=== PATIENT | male | born 1970 | race Hispanic/Latino ===

== ENCOUNTER 2023-03-17 12:24 | Inpatient (IN) | payer SELFPAY ==
[2023-03-17] VITALS (17 sets, daily range): BP systolic 89–109; BP diastolic 44–69; PULSE 68–80; RESP 13–25; TEMP 36–36.6; O2SAT 94–100; BMI 30.5
--- NOTE | ~2023-03-17 | CT_ITS ---
EXAMINATION: CT chest abdomen pelvis wo con DATE: 03/19/2023 01:08 INDICATION: Abdominal distention. TECHNIQUE: Computed tomography (CT) of the chest, abdomen, and pelvis was performed without intraveno us contrast. Automated exposure control and iterative reconstruction technique were employed. The dos e-length product was 842.40 mGy-cm. COMPARISON: None FINDINGS: CHEST CT: There are small pleural effusions. There is mild atelectasis bilaterally. Calcified pulmonary nodules and calcified mediastinal lymph nodes are consistent with old granulomatous disease. Cardiomegaly is noted. There is a moderate-sized pericardial effusion. There are coronary artery calcifications. The re is mild thoracic spondylosis. ABDOMEN/PELVIS CT: The liver is normal. There are gallstones in the gallbladder, which is normal in size. Gallbladder wa ll thickening is likely secondary to interstitial edema. The spleen, pancreas, and adrenal glands are normal. There is mild atrophy of the kidneys. There are widespread arterial calcifications. The pros turner is mildly enlarged. There are no dilated loops of bowel. The appendix is normal. There is a larg e volume of ascites. There is edema of the intra-abdominal fat and body wall. There is an umbilical h ernia containing ascites. There are no pathologically enlarged lymph nodes. There is mild lumbar spon dylosis. IMPRESSION: 1. Moderate-sized pericardial effusion. 2. Small pleural effusions. 3. Large volume of ascites. 4. Cholelithiasis. Gallbladder wall thickening is likely secondary to interstitial edema. Reviewed, dictated and finalized at location E. AND NUTRITION SUPERVISOR IMPRESSION: 1. Moderate-sized pericardial effusion. 2. Small pleural effusions. 3. Large volume of ascites. 4. Cholelithiasis. Gallbladder wall thickening is likely secondary to interstit ial edema.
--- NOTE | ~2023-03-17 | US_ITS ---
EXAMINATION: US abdomen limited DATE: 03/19/2023 INDICATION: Cholelithiasis TECHNIQUE: Multiple grayscale and Doppler ultrasound images of the abdomen were obtained. COMPARISON: CT dated 03/19/2023 FINDINGS: The visualized proximal aorta and inferior vena cava are normal. The region of the pancreas and more distal aorta and inferior vena cava are obscured by large amount of shadowing bowel gas. Liver has no rmal echogenicity and contour, with a smooth surface. No liver lesion identified. No intrahepatic yeison iary duct dilation suspected. Portal venous flow was seen in the hepatopetal, normal direction but wi th increased portal venous pulsatility. This along with dilation of the draining hepatic veins would be consistent with tricuspid regurgitation, right heart failure or other cause of elevated right hear t pressure. Sludge and couple small shadowing gallstones in the dependent gallbladder. There is mild diffuse gallbladder wall thickening but without emerson dilation to suggest acute cholecystitis. Sonogr aphic Martin sign was also reported as negative by the shredded filler cigar maker machine articular against acute cholecysti tis and suggesting the wall thickening is also likely related to cardiac disease. Common bile duct me asures 3 mm diameter which is normal. Moderate amount of ascites seen in the right upper quadrant. IMPRESSION: 1. Increased portal venous pulsatility and dilation of the draining hepatic veins likely cardiogenic in origin which could be related to congestive heart failure, tricuspid regurgitation or other cause of right heart failure. 2. Cholelithiasis with wall thickening of the nondilated gallbladder and with negative sonographic Mu rphy's sign which strongly favors cardiogenic interstitial edema over acute cholecystitis. 3. Moderate amount of ascites in the right upper quadrant also likely cardiogenic in origin. Reviewed, dictated and finalized at location A. LE HOUSE CLEANERS SUPERVISOR IMPRESSION: 1. Increased portal venous pulsatility and dilation of the draining hepatic vei ns likely cardiogenic in origin which could be related to congestive heart fail ure, tricuspid regurgitation or other cause of right heart failure. 2. Cholelithiasis with wall thickening of the nondilated gallbladder and with n egative sonographic Martin's sign which strongly favors cardiogenic interstitia l edema over acute cholecystitis. 3. Moderate amount of ascites in the right upper quadrant also likely cardiogen ic in origin.
--- NOTE | ~2023-03-17 | US_ITS ---
EXAMINATION: US paracentesis abd w/image DATE: 03/20/2023 10:05 INDICATION: Ascites. TECHNIQUE: The procedure and its risks and benefits were discussed with the patient. Potential risks discussed included bleeding and infection. The skin was prepped and draped in sterile fashion. 1% lid ocaine was used for local anesthesia. Under ultrasound guidance, a 5 Fr catheter with trochar was adv anced into the ascites in the left lower quadrant. Fluid was aspirated into vacuum bottles. The kyung ter was removed, and a dressing was applied. There were no immediate complications. FINDINGS: Ultrasound images demonstrate ascites and the catheter within the fluid. IMPRESSION: 1. Successful ultrasound-guided paracentesis yielding 2700 mL of clear yellow fluid. Reviewed, dictated and finalized at location A. RANCE MANAGER
--- NOTE | ~2023-03-17 | XR_ITS ---
EXAMINATION: XR chest 1V portable DATE: 03/19/2023 01:15 INDICATION: Shortness of breath. TECHNIQUE: A single frontal view of the chest was obtained. COMPARISON: Chest 2 views 03/17/2023, chest CT 03/19/2023 FINDINGS: There are small pleural effusions. There is mild atelectasis in the lower lung zones. No pn eumothorax. There is enlargement of the cardiac silhouette. IMPRESSION: 1. Small pleural effusions. 2. Mild atelectasis in the lower lung zones. 3. Enlargement of the cardiac silhouette, consistent with a combination of cardiomegaly and pericardi al effusion. Reviewed, dictated and finalized at location E. ER CUTTER IMPRESSION: 1. Small pleural effusions. 2. Mild atelectasis in the lower lung zones. 3. Enlargement of the cardiac silhouette, consistent with a combination of card iomegaly and pericardial effusion.
--- NOTE | ~2023-03-17 | XR_ITS ---
EXAMINATION: XR chest 2V DATE: 03/17/2023 12:45 INDICATION: Chest pain. Shortness of breath. TECHNIQUE: Frontal and lateral views of the chest were obtained. COMPARISON: None. FINDINGS: There are small pleural effusions. There are airspace opacities in the mid and lower lung z ones with a basilar predominance. No pneumothorax. Cardiomegaly is noted. IMPRESSION: 1. Small pleural effusions. 2. Airspace opacities in the mid and lower lung zones with a basilar predominance, consistent with at electasis versus pneumonia. 3. Cardiomegaly. Reviewed, dictated and finalized at location A. NG ROOM ATTENDANT IMPRESSION: 1. Small pleural effusions. 2. Airspace opacities in the mid and lower lung zones with a basilar predominan ce, consistent with atelectasis versus pneumonia. 3. Cardiomegaly.
--- NOTE | 2023-03-17 12:29 | ECG_ITS ---
Measurements Intervals [place] Rate: 67 P: 22 [place]: 165 QRS: -13 QRSD: 139 T: 53 QT: 437 QTc: 464 Interpretive Statements SINUS RHYTHM RIGHT BUNDLE BRANCH BLOCK BASELINE ARTIFACT- I, II, III, AVR, AVL, AVF, V1, V4-V5 ABNORMAL ECG NO PREVIOUS ECG AVAILABLE FOR COMPARISON Electronically Signed On 03-18-2023 8:42:23 PHOTOGRAPH ENLARGER by Wilfred Sanchez D.O.
--- NOTE | 2023-03-17 12:36 | ED.CHESTPAIN ---
HPI - Chest Pain General Chief Complaint: Chest Pain Stated Complaint: Chest Pain Time Seen by Provider: 03/17/23 12:29 Source: patient and family () Limitations: language barrier ([place]se as 2nd language although patient has appropriate fluency in [place]se) History of Present Illness HPI narrative: This is a 52-year-old male who presents with complaint of chest pain, shortness of breath, and generalized weakness since Saturday. He states the chest pain has been constant only mildly improved with the daily 81 mg of aspirin that he takes. It came on while he was carrying clothes otherwise he was not particularly active. His shortness of breath is intermittent, occurring even at rest. Does not know the medications that he is on other than the aspirin although believes he is on a medicine for blood pressure (unknown hypotension or hypertension). States he was previously on a diuretic but not currently. No palliating or provoking factors. He denies any nausea or vomiting. No diarrhea. Was reported the patient had a myocardial infarction approximately 2-3 months ago for which he was admitted at [facility] and had stents placed, exact details unknown. 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 No sick contacts. He has a history of end-stage renal disease on hemodialysis Saturday and Saturday. He does endorse missing dialysis on Saturday but states he had a full run on Saturday. States his treating engineer is Dr. Smith. Related Data Home Medications Medication Instructions Recorded Confirmed aspirin 81 mg chewable tablet 81 mg PO DAILY 03/17/23 03/17/23 atorvastatin 80 mg tablet 80 mg PO DAILY 03/17/23 03/17/23 carvedilol 12.5 mg tablet 12.5 mg PO BID 03/17/23 03/17/23 clopidogrel 75 mg tablet 75 mg PO DAILY 03/17/23 03/17/23 insulin glargine 100 unit/mL 16 unit subcut DAILY 03/17/23 03/17/23 subcutaneous cartridge liraglutide 0.6 mg/0.1 mL (18 mg/3 6 mg subcut DAILY 03/17/23 03/17/23 mL) subcutaneous pen injector (Victoza 3-Bart) sevelamer carbonate 800 mg tablet 800 mg PO TID 03/17/23 03/17/23 Allergies Allergy/AdvReac Type Severity Reaction Status Date / Time No Known Allergies Allergy Verified 03/17/23 12:38 PMFSH Past Medical History Medical History (Updated 03/18/23 @ 11:07 by Sukhi Richardson MD) Blindness of right eye ESRD on hemodialysis M/W/F Myocardial infarct Family History Family History (Updated 03/18/23 @ 11:04 by Sukhi Richardson MD) Father Diabetes mellitus Social History Social History (Updated 03/18/23 @ 11:05 by Sukhi Richardson MD) Social History: No significant tobacco use currently Smoking status: Unknown if ever smoked Alcohol intake: unknown Substance use: unknown Lack of Transportation: No Lack of Food: Never True Current Housing: I Have Housing Concerned About Future Housing: No Difficulty Paying Gas/Electric Bills: No Difficulty Paying for Meds: No Currently Unemployed: No Education: Decline to Answer Difficulty w/ Childcare or Family Care: No Spiritual care concerns: No Exam Narrative: GENERAL: well-nourished, and in no acute distress. HEAD: Normocephalic, atraumatic. EYES:EOMI. Cloudy white film on right eye. ENT: Nares clear, no rhinorrhea or epistaxis. NECK: Supple. CHEST: Clear to auscultation without wheezes or crackles. No respiratory distress. HEART: Regular rate and rhythm. No murmur heard. ABDOMEN: Soft, nontender, nondistended, normal active bowel sounds. EXTREMITIES: Normal range of motion. Palpable thrill distal to dialysis access in the right upper extremity. 3+ bilateral pitting edema in bilateral lower extremities SKIN: Warm, dry, no rash. NEURO: No focal deficits. Alert and oriented x3. PSYCH: Normal mood and affect. Course Consultations Consultation #1: Discussed patient with Nephrology Dr Mercado. Will arrange dialysis for tomorrow. Date: 03/17/23 Consultation #2: UPSTAIRS MAID hospitalist Go - dis
[2023-03-17 12:46] LABS: Sodium 133 mmol/L (137-145)
[2023-03-17 12:47] LABS: Alanine Aminotransferase 9 U/L (6-50); Blood Urea Nitrogen 72 mg/dL (9-20); Carbon Dioxide 25 mmol/L (22-30); Estimated CRCL calculation 7 ml/min; Estimated Glomerular Filt Rate 6; Glucose 157 mg/dL (65-110); Potassium 4.9 mmol/L (3.4-5.0)
[2023-03-17 12:48] LABS: Albumin Level 3.4 g/dL (3.5-5.1); Hematocrit 26.8 % (42.0-52.0); Hemoglobin 8.3 g/dL (14.0-18.0); Red Blood Count 2.74 M/mm3 (4.6-6.20); Troponin I 0.036 ng/mL (0.000-0.034); White Blood Count 6.6 K/mm3 (4.5-10.0)
[2023-03-17 12:49] LABS: Basophils Percent Auto 0.5 % (0.2-1.2); Eosinophils Absolute Auto 0.1 K/mm3 (0-0.3); Eosinophils Percent Auto 1.5 % (0-4.4); Immature Granulocyte Absolute 0.04 K/mm3 (0.00-0.031); Immature Granulocyte Percent A 0.6 % (0-0.5); Lymphocytes Absolute Auto 1.31 K/mm3 (0.9-3.2); Lymphocytes Percent Auto 19.7 % (18.3-44.2); Mean Corpuscular Hemoglobin 30.3 pg (26-34); Mean Corpuscular Volume 97.8 fl (80-100); Mean Platelet Volume 10.6 fl (7.4-10.4); Monocytes Absolute Auto 0.8 K/mm3 (0.1-0.6); Neutrophils Absolute Auto 4.4 K/mm3 (1.3-6.7); Neutrophils Percent Auto 65.7 % (45.5-73.1); Platelet Count Result 175 k/mm3 (150-375); Red Cell Distribution Width 17.9 % (11.5-14.5)
[2023-03-17 12:50] LABS: INR 1.1; Partial Thromboplastin Time 34.8 SECONDS (22.3-36.8); Prothrombin Time 15.1 Seconds (11.1-14.7)
[2023-03-17 13:04] LABS: Alkaline Phosphatase 209 U/L (38-126); Anion Gap 15 mmol/L (8-16); Aspartate Amino Transferase 26 U/L (17-59); Bilirubin,Total 0.9 mg/dL (0.2-1.3); Calcium 8.7 mg/dL (8.4-10.2); Chloride 93 mmol/L (98-107); Creatine Kinase 56 U/L (55-170)
[2023-03-17 13:18] LABS: NT Pro B Type Natriuretic Pept > 30000 pg/mL (19.9-100)
[2023-03-17 13:29] LABS: Influenza A QL RT-PCR Negative (Negative); Influenza B QL RT-PCR Negative (Negative); SARS-CoV-2 RNA PCR Negative (Negative)
--- NOTE | 2023-03-17 14:12 | PM.IMHP ---
H&P: HPI History of Present Illness Date/Time: 03/17/23 14:12 Chief Complaint: Chest pain, shortness of breath Narrative: Pedro Luis Rossi is a 52 year old male with PMH of ESRD on MWF HD and CAD who presents with two days of chest pain. He states the pain is in the left chest and is without timing factors. Pedro Luis notes that the chest pain was able to be reproduced with palpation yesterday but is not reproducible today. He states there is shortness of breath that is intermittent, but perhaps worse at night or when lying down. He notes having had a recent MS, a few months ago. He states he takes a daily baby aspirin. He is uncertain of his other medications. He denies any recent illness or change in health status. Pedro Luis notes that he generally dialyzes on MWF but missed his Saturday appointment. He follows with Dr. Smith outpatient. He additionally complains of worsening generalized weakness over the last two days. As the chest pain continued to worsen this morning he presented for further evaluation. On ED evaluation he had a CXR which was nonacute. EKG with RBBB and no STEMI. Labs show anemia with hgb of 8.3. His BUN/Cr are 72/9.3 with normal range potassium. Troponin was minimally elevated. BNP was above lab ability to evaluate. Nephrology was consulted and dialysis is being arranged. He will be admitted for further evaluation of the chest pain. Review of Systems Review of Systems: CONSTITUTIONAL: ?No fever, chills SKIN: ?No rash or pruritis. CARDIOVASCULAR: See hpi. RESPIRATORY: + shortness of breat. GASTROINTESTINAL: ?No nausea, vomiting, constipation, or diarrhea. No abdominal pain or bloody stools. NEUROLOGICAL: ?No syncope, paralysis, numbness or tingling in the extremities. No change in bowel or bladder control. [facility] Past Medical History Medical History (Updated 03/17/23 @ 17:22 by Jeff Stiles APRN) Blindness of right eye ESRD on hemodialysis M/W/F Myocardial infarct Meds Home Medications and Allergies Allergies Allergy/AdvReac Type Severity Reaction Status Date / Time No Known Allergies Allergy Verified 03/17/23 12:38 Vital Signs Vital Signs - 24 hr 03/17/23 12:33 03/17/23 12:33 Temperature 98 F Pulse Rate 68 Respiratory Rate 18 Blood Pressure 89/63 L Pulse Oximetry 100 100 Oxygen Delivery Room Air Room Air Exam Narrative: GENERAL APPEARANCE: Appears to be in no acute distress. HEAD: normocephalic atraumatic EYES: PERRL, EOMI. Vision grossly intact. ENT: Hearing grossly intact, no nasal discharge NECK: Neck supple, trachea midline. CARDIAC: Normal S1/S2. Rhythm is regular. No murmurs, rubs, or gallops. No cyanosis or pallor. Extremities are warm and well perfused. LUNGS: Clear to auscultation without rales, rhonchi. Diminished bases bilaterally. Respirations even and unlabored. ABDOMEN: BS positive x 4 quadrants. Soft, nondistended, nontender. No guarding or rebound. MSK: No joint tenderness/swelling, fair strength in all extremities. PERIPHERAL VASCULAR: Peripheral pulses palpable. Normal perfusion, cap refill <2 seconds. +3 BLLE edema. NEURO: Follows commands. No focal deficits. SKIN: [place] without lesions or eruptions. PSYCH: Stable, no paranoia or delusional thinking. H&P: Results Labs Labs: Short CBC 03/17/23 Range/Units 11:57 WBC 6.6 (4.5-10.0) K/mm3 Hgb 8.3 L (14.0-18.0) g/dL Hct 26.8 L (42.0-52.0) % Plt Count 175 (150-375) k/mm3 [facility] 03/17/23 11:57 Sodium 133 L Potassium 4.9 Chloride 93 L Carbon Dioxide 25 BUN 72 H Creatinine 9.30 H Glucose 157 H Calcium 8.7 Cardiac Enzymes 03/17/23 Range/Units 11:57 Total Creatine Kinase 56 (55-170) U/L Troponin I 0.036 H* (0.000-0.034) ng/mL Liver Function 03/17/23 Range/Units 11:57 Total Bilirubin 0.9 (0.2-1.3) mg/dL AST 26 (17-59) U/L ALT 9 (6-50) U/L Alkaline Phosphatase 209 H (38-126) U/L Albumin 3.4 L (3.5-5.1) g/dL
--- NOTE | 2023-03-17 15:15 | ADMGEN ---
This patient, Pedro Luis Rossi, was admitted to IMU Room 205-02. Patient/family oriented to hospital policies and general routines including ID bracelet, bed and alarms, visiting hours, pain management, procedures, bathroom and other care routines, personal items, smoking policy, room service/diet, and visiting hours. Information on how to activate the Rapid Response Team has been discussed. Patient/Family are encouraged to report perceived risks to care and to ask questions if they do not understand what they are told or what they should do.
[2023-03-17 17:58] LABS: Troponin I 0.031 ng/mL (0.000-0.034)
[2023-03-17] MEDS: ASPIRIN 81 MG ENTERIC TABLET PO (18:43)
[2023-03-17] MEDS: HEPARIN SODIUM 5,000 UNITS/ML VIAL 5000 UNITS SUB-Q (20:50)
[2023-03-17 21:00] LABS: Glucose Point of Care 241 mg/dl (65-105)
[2023-03-17 21:22] LABS: Troponin I 0.031 ng/mL (0.000-0.034)
[2023-03-18] VITALS (30 sets, daily range): BP systolic 93–126; BP diastolic 51–74; PULSE 69–80; RESP 16–18; TEMP 36.1–37; O2SAT 96–99
--- NOTE | 2023-03-18 | ECHO_ITS ---
Patient Info Name: Pedro Luis Rossi Age: 52 years : 1970 Gender: Male Ht: 61 in Wt: 161 lbs BSA: 1.80 m2 HR: 76 bpm BP: 111 / 56 mmHg Heart Rhythm: Sinus Rhythm Technical Quality: Good Exam Date: 03/18/2023 1:30 PM Exam Location: Echo Lab Patient Status: Inpatient Admit Date: 03/17/2023 Staff Ordering Physician: Sukhi Richardson MD Juvenile Corrections Officer: Edilia Capellan RDCS Attending Provider: Jess Sheikh MD Referring Physician: Dylan RED; Exam Type: CA echo doppler color flow Study Info Indications - Ischemic cardiomyopathy, cp, cad Complete two-dimensional, color flow and Doppler transthoracic echocardiogram is performed. Summary 1. Complete two-dimensional, color flow and Doppler transthoracic echocardiogram is performed. 2. Mild left ventricular enlargement with moderate global systolic dysfunction. 3. Grade 1 diastolic noncompliance. 4. Left atrial dilation. 5. Aortic valve sclerosis without stenosis. 6. Moderate tricuspid regurgitation, velocities estimate RV systolic pressure of 43. 7. Small circumferential pericardial effusion. 8. Pleural effusion noted. Left Ventricle Left ventricular chamber dimension is mildly enlarged. Left ventricular systolic function is moderately reduced, estimated at 35-40%. The left ventricular diastolic function is grade I diastolic dysfunction. Right Ventricle Right ventricular chamber dimension is mildly enlarged. Left Atria Left atrial chamber dimension is moderately enlarged. Right Atria Right atrial chamber dimension is normal. Aortic Valve The aortic valve is trileaflet. There is mild aortic valve sclerosis. There is no aortic valve stenosis. Pulmonic Valve The pulmonic valve is not well visualized. Mitral Valve The mitral valve has normal leaflets. There is trace mitral valve regurgitation. Tricuspid Valve The tricuspid valve leaflets are normal. There is moderate tricuspid valve regurgitation. Mild pulmonary hypertension, estimated pulmonary arterial systolic pressure is 58 mmHg. Pericardium/Pleural There is small circumferential pericardial effusion. Aorta The aortic root size at the sinus of Valsalva is normal. Left Ventricular Outflow Tract Name Value Normal LVOT 2D LVOT Diameter 2.0 cm LVOT Doppler LVOT Peak Gradient 5 mmHg LVOT Mean Gradient 2 mmHg LVOT VTI 19 cm LVOT VTI/AV VTI Ratio 0.7 LVOT Stroke Volume 56 ml LVOT CO 4.0 l/min LVOT CI 2.2 l/min/m2 Pulmonic Valve Name Value Normal RVOT Doppler RVOT Peak Gradient 1 mmHg PV Doppler PV Peak Gradient 6 mmHg Mitral Valve
[2023-03-18 05:19] LABS: Basophils Percent Auto 0.2 % (0.2-1.2); Eosinophils Absolute Auto 0.1 K/mm3 (0-0.3); Eosinophils Percent Auto 1.1 % (0-4.4); Hematocrit 26.7 % (42.0-52.0); Hemoglobin 8.3 g/dL (14.0-18.0); Immature Granulocyte Absolute 0.03 K/mm3 (0.00-0.031); Immature Granulocyte Percent A 0.5 % (0-0.5); Lymphocytes Absolute Auto 1.01 K/mm3 (0.9-3.2); Lymphocytes Percent Auto 16.1 % (18.3-44.2); Mean Corpuscular HGB Conc 31.1 g/dl (32-36); Mean Corpuscular Hemoglobin 30.4 pg (26-34); Mean Corpuscular Volume 97.8 fl (80-100); Mean Platelet Volume 10.9 fl (7.4-10.4); Monocytes Absolute Auto 0.6 K/mm3 (0.1-0.6); Monocytes Percent Auto 9.7 % (2.6-8.5); Neutrophils Absolute Auto 4.6 K/mm3 (1.3-6.7); Neutrophils Percent Auto 72.4 % (45.5-73.1); Platelet Count Result 184 k/mm3 (150-375); Red Blood Count 2.73 M/mm3 (4.6-6.20); Red Cell Distribution Width 17.4 % (11.5-14.5); White Blood Count 6.3 K/mm3 (4.5-10.0)
[2023-03-18 05:36] LABS: Alanine Aminotransferase 10 U/L (6-50); Albumin Level 3.2 g/dL (3.5-5.1); Alkaline Phosphatase 204 U/L (38-126); Anion Gap 16 mmol/L (8-16); Aspartate Amino Transferase 21 U/L (17-59); Bilirubin,Total 0.9 mg/dL (0.2-1.3); Blood Urea Nitrogen 79 mg/dL (9-20); Calcium 8.4 mg/dL (8.4-10.2); Carbon Dioxide 23 mmol/L (22-30); Chloride 93 mmol/L (98-107); Estimated CRCL calculation 7 ml/min; Estimated Glomerular Filt Rate 6; Glucose 181 mg/dL (65-110); Potassium 5.1 mmol/L (3.4-5.0); Sodium 132 mmol/L (137-145)
[2023-03-18 05:51] LABS: Iron 36 ug/dL (49-181)
[2023-03-18 06:00] LABS: Hepatitis B Surface Antigen Negative (Negative); Percent Iron Saturation 19 % (20-50)
[2023-03-18 06:18] LABS: Hepatitis B Surface Antibody > 1000.00 s/c
[2023-03-18 06:21] LABS: Hepatitis B Surface Anti Res Positive
[2023-03-18 08:32] LABS: Glucose Point of Care 138 mg/dl (65-105)
--- NOTE | 2023-03-18 09:49 | PM.CNNEP ---
Assessment and Plan Assessment and plan (1) End stage renal disease: Code(s): N18.6 - End stage renal disease Status: Chronic Assessment and Plan: HD today continue M/W/F dialysis schedule while hospitalized follow electrolytes, volume status, and clearance goes to [facility] under the care of Dr. Smith (2) Chest pain: Code(s): R07.9 - Chest pain, unspecified Status: Acute Assessment and Plan: known history of CAD trend troponins Cardiology following (3) Shortness of breath: Code(s): R06.02 - Shortness of breath Status: Acute Assessment and Plan: due to a component of fluid overload complicated by missed dialysis treatment last week cannot discount a cardiac component follow respiratory status (4) Anemia: Code(s): D64.9 - Anemia, unspecified Status: Chronic Assessment and Plan: due to ESRD Epogen wih HD follow H/H I will continue to follow the patient with you while he remains hospitalized and make further recommendations as needed. Thank you for allowing me to participate patient History of Present Illness Reason for Consult Consult date: 03/18/23 Reason for consult: end stage renal disease Chief Complaint Chief complaint: Chest Pain History of Present Illness Narrative: The patient is a 52-year-old male with a past medical history as outlined below who presented to [facility] Emergency Room with complaints of chest pain. He reports the chest pain localized to his left chest area without any other associated symptoms. He does note that the chest pain is reproducible with palpation at times. He also reports some intermittent shortness of breath that seems to be somewhat worsened night and when laying flat. He does report that he missed his dialysis treatment on Saturday but is unable to elaborate why that occurred. Given the symptoms as mentioned, he presented to the emergency room for further assessment Workup and evaluation emergency room demonstrated EKG with right bundle branch block but no evidence of acute ischemia. His chest x-ray was negative for any acute pathology. Routine blood test demonstrated labs consistent with his known history of end-stage renal disease without any critical electrolyte abnormalities and a CBC was only significant for anemia with a hemoglobin of 8.3. His troponin was mildly elevated as was his BNP. As he apparently had a recent myocardial infarction several months ago, he was admitted to the hospital for further evaluation and therapy. Since his admission he appears to be in no apparent distress with no other issues or events overnight or earlier this morning. Renal consultation was requested due to his end-stage renal disease. The patient normally dialyzes on a Saturday, Saturday, Saturday dialysis schedule at [facility] under the care of Dr. Smith. As already mentioned above, he missed his dialysis treatment last Saturday. But I am not entirely clear as to the etiology of his end-stage renal disease a suspicion falls on hypertension and cardiovascular disease. Currently, at the my visit, he appears to be tolerating his treatment (was seen on HD at 9:35AM). Review of Systems Review of Systems: As per HPI. [facility] Past Medical History Medical History (Updated 04/09/23 @ 06:33 by Ricardo Forrest MD) Blindness of right eye ESRD on hemodialysis M/W/F Myocardial infarct Family History Family History (Updated 03/18/23 @ 11:04 by Sukhi Richardson MD) Father Diabetes mellitus Social History Social History (Updated 03/18/23 @ 11:05 by Sukhi Richardson MD) Social History: No significant tobacco use currently Smoking status: Unknown if ever smoked Alcohol intake: unknown Substance use: unknown Lack of Transportation: No Lack of Food: Never True Current Housing: I Have Housing Concerned About Future Housing: No Difficulty Paying Gas
--- NOTE | 2023-03-18 10:52 | PM.CNCAR ---
Assessment and Plan Assessment and plan (1) CAD (coronary artery disease): Code(s): I25.10 - Atherosclerotic heart disease of [place] coronary artery without angina pectoris Status: Acute Assessment and Plan: Partially noncompliant with medications. He had very complex high risk stenosis/PCI performed on January 162022 at [place] as detailed above. He has not been taking his clopidogrel for about a week. Resume clopidogrel 75 mg daily. Continue aspirin 81 mg p.o. daily. Will resume atorvastatin 80 mg daily. Blood pressure is a bit soft. Will start carvedilol 3.125 mg p.o. b.i.d. and up titrate as able. Add other medications as BP will allow. 2D echocardiogram with Doppler will be ordered and reviewed. (2) Ischemic cardiomyopathy: Code(s): I25.5 - Ischemic cardiomyopathy Status: Acute Assessment and Plan: Echo pending. Medications as above and will add as able (3) Chronic systolic (congestive) heart failure: Code(s): I50.22 - Chronic systolic (congestive) heart failure Status: Acute Assessment and Plan: As detailed above (4) Chest pain: Code(s): R07.9 - Chest pain, unspecified Status: Acute Assessment and Plan: Probably musculoskeletal but it is worrisome that he has not been on his medications over the past couple of days. No evidence of acute stent thrombosis though via EKG. Will repeat EKG (5) ESRD on hemodialysis: Code(s): N18.6 - End stage renal disease; Z99.2 - Dependence on renal dialysis Status: Acute Assessment and Plan: On dialysis but missed Saturday which in part is resulting in his dyspnea History of Present Illness History of Present Illness Consult date/time: 03/18/23 10:52 Requesting physician: Jeff Stiles, SCIENCE WRITER Consult reason: chest pain Reason For Visit: Chest Pain Narrative: Reason for consultation: Chest pain Date of service 03/18/2023 Requesting provider: Jeff Stiles History: Patient is a 52-year-old male who has history of CAD, hypertension, diabetes, end-stage renal failure. At the end of December of this year he presented to an outside hospital with symptoms of heart failure and chest discomfort. Echocardiogram showed severe RV dysfunction, severe TR, EF 40% and coronary angiogram revealed multi vessel CAD. He was transferred to [place] in cardiogenic shock. He had a 70% distal left main stenosis, 80-90% severe ostial circumflex stenosis ostial LAD with a 90% stenosis. 50% lesion the mid segment. The mid LAD is also heavily calcified 60-70% stenosis. High-grade stenosis which is in stent involving the ostial circumflex. PLV was known to be occluded. He underwent complex PCI of the distal left main ostial LAD and ostial circumflex. He had a 3.0 x 22 mm ZEN to the left main into the LAD and a 3.0 x 15 mm ZEN to the circumflex using jailed stent balloon technique. He presented to the hospital due to some chest discomfort which was him point and reproducible with palpation 2 days ago but became less reproducible yesterday and today therefore came to the hospital. He does have some shortness of breath but missed dialysis on Saturday. He does describe some paroxysmal nocturnal dyspnea as well as some shortness of breath. He sings in the shortness of breath has been more chronic and is worsened at night. Denies palpitations. He does take an aspirin but had not been taking all of his other cardiac medications since Saturday. Review of Systems Review of Systems: All systems reviewed & are unremarkable except as noted in HPI and below Constitutional: Constitutional: Denies body ache(s) Eyes: Eyes: Denies blurry vision ENT: Reports Normal hearing present Cardiovascular: Cardiovascular: Reports chest pain Respiratory: Respiratory: Denies cough and Reports dyspnea Gastrointestinal: Gastrointestinal: Denies abdominal pain Genitourinary: Genitourinary: Denies hematuria Musculoskelet
[2023-03-18] MEDS: SODIUM CHLORIDE 0.9% IV 1,000 ML 999 ML IV CONT (11:10)
[2023-03-18] MEDS: EPOETIN ALFA-EPBX 10,000 UNITS/ML VIAL 10000 UNITS IV PUSH (11:10)
--- NOTE | 2023-03-18 11:12 | ECG_ITS ---
Measurements Intervals [place] Rate: 76 P: 24 [place]: 157 QRS: -24 QRSD: 137 T: 30 QT: 403 QTc: 455 Interpretive Statements SINUS RHYTHM RIGHT BUNDLE BRANCH BLOCK CONSIDER INFERIOR INFARCT, AGE INDETERMINATE ABNORMAL ECG COMPARED TO ECG 03/17/2023 11:54:05 NO SIGNIFICANT CHANGES Electronically Signed On 03-18-2023 16:34:06 CORRECTIONS NURSE by Wilfred Sanchez D.O.
--- NOTE | 2023-03-18 12:15 | PCCARD ---
EKG ORDERS @ 1900 & 2200 CANCELLED BY CARDIOLOGY DUE TO NO EKG'S ON EKG MACHINES, NOT IN PATIENT CHART AND NONE WERE TRANSMITTED.
[2023-03-18 12:35] LABS: Glucose Point of Care 104 mg/dl (65-105)
--- NOTE | 2023-03-18 13:27 | PC.NURSE ---
Attempted to call [facility] at [phone] x [phone] with no answer. Will continue to attempt to call to clarify medications patient is currently taking.
[2023-03-18] MEDS: HEPARIN SODIUM 5,000 UNITS/ML VIAL 5000 UNITS SUB-Q ×2 (14:28→21:09)
[2023-03-18] MEDS: CLOPIDOGREL BISULFATE 75 MG TABLET PO (14:28)
[2023-03-18] MEDS: ASPIRIN 81 MG ENTERIC TABLET PO (14:28)
[2023-03-18] MEDS: ATORVASTATIN 40 MG TABLET 80 MG PO (14:28)
--- NOTE | 2023-03-18 14:30 | PM.IMPN ---
Progress Note: A&P Assessment and Plan (1) ESRD on hemodialysis: Code(s): N18.6 - End stage renal disease; Z99.2 - Dependence on renal dialysis Status: Acute Assessment and Plan: 03/17: Missed Saturday dialysis. Appears volume overloaded on exam. - Nephrology consulted, will dialyze tomorrow. K is stable. - pt receiving dialysis potassium is 5 today (2) Chest pain: Code(s): R07.9 - Chest pain, unspecified Status: Acute Assessment and Plan: 03/17: Chest pain x 2 days with minimally elevated troponin. There is a recent CT with stenting per family - [facility]? - Serial enzymes/ekgs. Telemetry. ASA/ntg. Morphine for pain unrelieved by nitro. - Consult with cardiology. - plan to restart cardiology meds pt is non compliant - trop minimally elevated (3) Shortness of breath: Code(s): R06.02 - Shortness of breath Status: Acute Assessment and Plan: 03/17: Presume 2/2 fluid overload. Dialysis tomorrow. 03/18: resume cardiac medications continue to watch in IMU trop minimally elevated (4) Anemia: Code(s): D64.9 - Anemia, unspecified Status: Acute Assessment and Plan: 03/17: Presume chronic. Normocytic. (5) Elevated brain natriuretic peptide (BNP) level: Code(s): R79.89 - Other specified abnormal findings of blood chemistry Status: Acute Assessment and Plan: 03/17: Fluid overload 2/2 ESRD missed dialysis. Nephrology consulted. 03/18: pt seen in dialysis today complains of mild L sided chest pain Subjective Date/time seen: 03/18/23 14:30 Interval history: 52 year old male with PMH of ESRD on MWF HD and CAD who presents with two days of chest pain.? He states the pain is in the left chest and is without timing factors.? Pedro Luis notes that the chest pain was able to be reproduced with palpation yesterday but is not reproducible today. He states there is shortness of breath that is intermittent, but perhaps worse at night or when lying down.? He notes having had a recent CT, a few months ago. Pt is non compliant to medications pt had PCI on January 16 2023. Pt admitted with chest pain seen cardiology and nephrology today. Pt to have dialysis and resume his cardiology medications. Review of Systems Review of Systems: Chest pain more left sided Exam Narrative: GENERAL APPEARANCE: Appears to be in no acute distress. ENT: Hearing grossly intact, no nasal discharge NECK: Neck supple, trachea midline. CARDIAC: Normal S1/S2. Rhythm is regular. No murmurs, rubs, or gallops. No cyanosis or pallor. Extremities are warm and well perfused. LUNGS: Clear to auscultation without rales, rhonchi. Diminished bases bilaterally. Respirations even and unlabored. ABDOMEN: BS positive x 4 quadrants. Soft, nondistended, nontender. No guarding or rebound. MSK: No joint tenderness/swelling, fair strength in all extremities. PERIPHERAL VASCULAR: Peripheral pulses palpable. Normal perfusion, cap refill <2 seconds. +3 BLLE edema. NEURO: Follows commands. No focal deficits. Objective Data Vital Signs Vital Signs: Vital Signs - 24 hr 03/17/23 14:56 03/17/23 15:00 03/17/23 15:29 Temperature 36.1 C L Pulse Rate 73 72 71 Respiratory Rate 20 20 16 Blood Pressure 95/57 L Pulse Oximetry 100 97 Oxygen Delivery 03/17/23 16:00 03/17/23 16:00 03/17/23 18:00 Temperature Pulse Rate 74 71 Respiratory Rate Blood Pressure Pulse Oximetry Oxygen Delivery Room Air 03/17/23 16:40 03/17/23 20:17 03/17/23 20:00 Temperature 36.0 C L 36.4 C Pulse Rate 72 71 73 Respiratory Rate 22 H 18 Blood Pressure 103/69 109/44 L Pulse Oximetry 98 94 Oxygen Delivery 03/17/23 22:00 03/17/23 20:00 03/17/23 23:46 Temperature 36.2 C L Pulse Rate 73 74 Respiratory Rate 22 H Blood Pressure 99/58 L Pulse Oximetry 94 Oxygen Delivery Room Air 03/18/23 00:00 03/18/23 00:00 03/18/23 02:00 Temperature Pulse Rate
[2023-03-18] MEDS: SODIUM ZIRCONIUM CYCLOSILICATE 5 GM POWD.PACK PO (15:24)
[2023-03-18 16:03] LABS: Glucose Point of Care 202 mg/dl (65-105)
[2023-03-18] MEDS: TICAGRELOR 90 MG TABLET PO (16:57)
[2023-03-18] MEDS: SEVELAMER CARBONATE 800 MG TABLET PO (16:57)
[2023-03-18] MEDS: INSULIN GLARGINE (*BKC) 100 UNITS/ML 16 UNITS SUB-Q (17:00)
[2023-03-18] MEDS: INSULIN ASPART (*BKC) 100 UNITS/ML SUB-Q (17:01)
[2023-03-18] MEDS: ACETAMINOPHEN 325 MG TABLET 650 MG PO (18:19)
[2023-03-18 20:12] LABS: Glucose Point of Care 166 mg/dl (65-105)
[2023-03-18] MEDS: carvediloL 3.125 MG TABLET PO (21:09)
[2023-03-19] VITALS (17 sets, daily range): BP systolic 82–111; BP diastolic 51–69; PULSE 63–73; RESP 18; TEMP 35.8–36.8; O2SAT 93–100
[2023-03-19 01:31] LABS: Hematocrit 27.7 % (42.0-52.0); Hemoglobin 8.2 g/dL (14.0-18.0); Mean Corpuscular HGB Conc 29.6 g/dl (32-36); Mean Corpuscular Hemoglobin 30.1 pg (26-34); Mean Corpuscular Volume 101.8 fl (80-100); Mean Platelet Volume 10.8 fl (7.4-10.4); Platelet Count Result 200 k/mm3 (150-375); Red Blood Count 2.72 M/mm3 (4.6-6.20); Red Cell Distribution Width 17.9 % (11.5-14.5); White Blood Count 6.5 K/mm3 (4.5-10.0)
[2023-03-19 01:41] LABS: Lactic Acid Reflex 1.7 mmol/L (0.7-2.0)
[2023-03-19 01:44] LABS: Alanine Aminotransferase 10 U/L (6-50); Albumin Level 3.4 g/dL (3.5-5.1); Alkaline Phosphatase 184 U/L (38-126); Anion Gap 16 mmol/L (8-16); Aspartate Amino Transferase 19 U/L (17-59); Bilirubin,Total 0.9 mg/dL (0.2-1.3); Blood Urea Nitrogen 42 mg/dL (9-20); Calcium 8.7 mg/dL (8.4-10.2); Carbon Dioxide 21 mmol/L (22-30); Chloride 99 mmol/L (98-107); Estimated CRCL calculation 11 ml/min; Estimated Glomerular Filt Rate 10; Glucose 145 mg/dL (65-110); Lipase 33 U/L (23-300); Magnesium 2.3 mg/dL (1.6-2.3); Phosphorus 5.4 mg/dL (2.5-4.5); Potassium 4.6 mmol/L (3.4-5.0); Sodium 136 mmol/L (137-145)
[2023-03-19] MEDS: MIDODRINE HCL 2.5 MG TABLET 15 MG PO (06:01)
[2023-03-19 08:15] LABS: Glucose Point of Care 73 mg/dl (65-105)
--- NOTE | 2023-03-19 09:46 | PM.PNNEP ---
Progress Note: A&P Assessment and Plan (1) End stage renal disease: Code(s): N18.6 - End stage renal disease Status: Chronic Assessment and Plan: HD tomorrow continue M/W/F dialysis schedule while hospitalized follow electrolytes, volume status, and clearance goes to [facility] under the care of Dr. Smith (2) Chest pain: Code(s): R07.9 - Chest pain, unspecified Status: Acute Assessment and Plan: known history of CAD trend troponins Cardiology following (3) Shortness of breath: Code(s): R06.02 - Shortness of breath Status: Acute Assessment and Plan: due to a component of fluid overload complicated by missed dialysis treatment last week cannot discount a cardiac component follow respiratory status (4) Ascites: Code(s): R18.8 - Other ascites Status: Acute Assessment and Plan: noted by recent imaging given symptoms, will order therapeutic paracentesis appears related to cardiac issues (5) Anemia: Code(s): D64.9 - Anemia, unspecified Status: Chronic Assessment and Plan: due to ESRD Epogen wih HD follow H/H Will continue to follow Subjective Date/time seen: 03/19/23 09:46 Interval history: Follow-up for end stage renal disease on hemodialysis. Tolerated dialysis treatment yesterday without any issues or problems (2L fluid removal); complaining of mild shortness of breath associated with abdominal distension/ bloating secondary to ascites -- has had to have paracentesis in the past. Exam Narrative: General: WD/WN male in NAD Heart: normal S1 and S2; no rub Lungs: clear anteriorly, decreased at bases Abdomen: soft, ++distension, positive bowel sounds Extremities: no cyanosis or clubbing; trace edema Skin: warm and dry Objective Data Vital Signs Vital Signs: Vital Signs Temp Pulse Resp BP Pulse Ox O2 Del Method O2 Flow Rate 03/19/23 08:00 67 03/19/23 08:00 100 Nasal Cannula 2 03/19/23 08:00 98.3 F 70 18 96/66 L 100 03/19/23 06:00 69 03/19/23 04:00 97.7 F 69 18 82/63 L 99 03/19/23 04:00 93 Nasal Cannula 2 03/19/23 04:00 67 03/19/23 02:00 69 03/19/23 00:00 70 03/19/23 00:00 93 Nasal Cannula 2 03/19/23 00:00 97.8 F 71 18 87/51 L 93 03/18/23 22:00 72 03/18/23 20:00 71 03/18/23 20:00 Room Air 03/18/23 21:09 71 03/18/23 19:58 98.6 F 71 16 96/57 L 98 03/18/23 18:00 75 03/18/23 16:00 97.3 F L 76 16 104/57 L 96 03/18/23 16:00 77 03/18/23 16:00 Room Air 03/18/23 12:00 77 03/18/23 14:00 80 03/18/23 12:30 Room Air 03/18/23 12:30 97.5 F L 69 16 119/59 L 99 03/18/23 12:16 97.3 F L 75 16 122/70 03/18/23 12:06 76 123/70 Intake/Output Intake/Output: Intake & Output 03/16/23 03/17/23 03/18/23 03/19/23 23:59 23:59 23:59 23:59 Intake Total 920 360 Output Total 1999 2 Balance 920 -1640 -2 Meds/Results Medications: Active Medications Generic Name Dose Route Start Last Admin Trade Name Farhat PRN Reason Stop Dose Admin Acetaminophen 650 mg 03/17/23 14:04 03/18/23 18:19 Acetaminophen 325 Mg Tablet PO 650 mg Q4H PRN Administration Mild Pain (1-3) or Fever Aspirin 81 mg 03/19/23 09:00 03/19/23 11:13 Aspirin 81 Mg Chewable Tablet PO 81 mg DAILY ROSIE Administration Atorvastatin Calcium 80 mg 03/19/23 09:00 03/19/23 11:13 Atorvastatin 40 Mg Tablet PO 80 mg DAILY ROSIE Administration Carvedilol 3.125 mg 03/18/23 21:00 03/19/23 11:13 Carvedilol 3.125 Mg Tablet PO 3.125 mg Q12HR ROSIE Administration Clopidogrel Bisulfate 75 mg 03/19/23 09:00 03/19/23 11:13 Clopidogrel Bisulfate 75 Mg Tablet PO 75 mg DAILY ROSIE Administration Dextrose 12.5 gm 03/18/23 16:51 Dextrose 50% 25 Gm/50 Ml Syringe I
--- NOTE | 2023-03-19 09:56 | PM.PNCARD ---
Progress Note: A&P Assessment and Plan (1) CAD (coronary artery disease): Code(s): I25.10 - Atherosclerotic heart disease of circle coronary artery without angina pectoris Status: Acute Assessment and Plan: Partially noncompliant with medications. He had very complex high risk stenosis/PCI performed on January 24 2023 at [place] as detailed in the HPI. He has not been taking his clopidogrel for about a week. Home medication list includes both plavix and Brilinta. Records from [facility] indicate he is supposed to be taking brilinta. Continue Brilinta 90mg b.i.d, aspirin 81 mg p.o. daily, and atorvastatin 80mg daily. Continue carvedilol 3.125 mg p.o. b.i.d. and up titrate as able (BP a bit soft this morning, so will continue current dose for now). Add other medications as BP will allow. Echo showed LV systolic function with EF 35-40%, grade 1 diastolic dysfunction, moderate TR, small pericardial effusion. Cardiology will sign off please call with questions (2) Ischemic cardiomyopathy: Code(s): I25.5 - Ischemic cardiomyopathy Status: Acute Assessment and Plan: Echo showed EF 35 - 40%, grade I diastolic dysfunction. Because of his renal function, unable to optimize his GDMT. For now, continue coreg 3.125mg b.i.d. and lisinopril 10mg daily. 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 (3) Chronic systolic (congestive) heart failure: Code(s): I50.22 - Chronic systolic (congestive) heart failure Status: Acute Assessment and Plan: As detailed above (4) Chest pain: Code(s): R07.9 - Chest pain, unspecified Status: Acute Assessment and Plan: Probably musculoskeletal but it is worrisome that he has not been on his medications over the past couple of days. No evidence of acute stent thrombosis though via EKGs. (5) ESRD on hemodialysis: Code(s): N18.6 - End stage renal disease; Z99.2 - Dependence on renal dialysis Status: Acute Assessment and Plan: On dialysis but missed Saturday which in part is resulting in his dyspnea Subjective Date/time seen: 03/19/23 09:56 Interval history: Cardiology follow up for CAD, chest pain Denies any chest pain today but is complaining of abdominal pain/bloating. Review of Systems Review of Systems: All systems reviewed & are unremarkable except as noted in HPI and below Constitutional: Constitutional: Denies body ache(s) and Denies excessive sweating Eyes: Eyes: Denies blurry vision ENT: Reports Normal hearing present Cardiovascular: Cardiovascular: Reports chest pain and Reports dyspnea Respiratory: Respiratory: Denies cough and Reports dyspnea Gastrointestinal: Gastrointestinal: Denies abdominal pain Genitourinary: Genitourinary: Denies hematuria Musculoskeletal: Musculoskeletal: Denies back pain Integumentary/Breasts: Skin/Breast: Denies pruritus Neurologic: Reports Normal hearing present, Denies Abnormal speech present and Denies confusion Psychiatric: Psychiatric: Denies confusion Endocrine: Endocrine: Denies excessive sweating Hematologic/Lymphatic: Hematologic/Lymphatic: Denies easy bleeding Allergic/Immunologic: Allergic/Immunologic: Denies GI upset with certain foods Exam Narrative: Awake alert oriented appears to be in no acute distress. Appears stated age Const: General: comfortable and no acute distress; No confusion Orientation/consciousness: No confusion HENMT: Face/Nose/Sinus: Normal nares present Mouth: Yes moist mucous membranes Eyes: General: appearance normal, both eyes and all related structures Sclera: sclerae normal Neck: Neck: supple and no JVD Chest: Other: No reproducible chest wall pain to palpation Resp: Effort & Inspection: normal respiratory effort Auscultation: clear to auscultation bilaterally Cardio: Rate: regular rate Rhythm: regular rhythm Heart sounds: no murm
[2023-03-19] MEDS: TICAGRELOR 90 MG TABLET PO ×2 (11:12→17:59)
[2023-03-19] MEDS: SEVELAMER CARBONATE 800 MG TABLET PO ×2 (11:12→17:59)
[2023-03-19] MEDS: ATORVASTATIN 40 MG TABLET 80 MG PO (11:13)
[2023-03-19] MEDS: carvediloL 3.125 MG TABLET PO (11:13)
[2023-03-19] MEDS: ASPIRIN 81 MG CHEWABLE TABLET PO (11:13)
[2023-03-19] MEDS: FOLIC ACID 0.4 MG TABLET 0.8 MG PO (11:13)
[2023-03-19] MEDS: CLOPIDOGREL BISULFATE 75 MG TABLET PO (11:13)
[2023-03-19] MEDS: HEPARIN SODIUM 5,000 UNITS/ML VIAL 5000 UNITS SUB-Q (11:13)
[2023-03-19] MEDS: prednisoLONE ACETATE 1% OPHTH 5 ML 1 DROP RIGHT EYE (11:14)
[2023-03-19] MEDS: VITAMIN B COMPLEX/VIT C CAPSULE 1 EACH PO (11:16)
[2023-03-19 12:18] LABS: Glucose Point of Care 182 mg/dl (65-105)
[2023-03-19 12:25] LABS: INR 1.2; Prothrombin Time 16.2 Seconds (11.1-14.7)
[2023-03-19 12:26] LABS: Partial Thromboplastin Time 37.1 SECONDS (22.3-36.8)
[2023-03-19] MEDS: ACETAMINOPHEN 325 MG TABLET 650 MG PO (14:44)
--- NOTE | 2023-03-19 16:27 | PM.IMPN ---
Progress Note: A&P Assessment and Plan (1) ESRD on hemodialysis: Code(s): N18.6 - End stage renal disease; Z99.2 - Dependence on renal dialysis Status: Acute Assessment and Plan: 03/17: Missed Saturday dialysis. Appears volume overloaded on exam. - Nephrology consulted, hemodialysis 03/18/2023 Nephrology on board (2) Chest pain: Code(s): R07.9 - Chest pain, unspecified Status: Acute Assessment and Plan: 03/17: Chest pain x 2 days with minimally elevated troponin. There is a recent MD with stenting per family - [facility]? - Serial enzymes/ekgs. Telemetry. ASA/ntg. Morphine for pain unrelieved by nitro. - Consult with cardiology. - plan to restart cardiology meds pt is non compliant - trop minimally elevated with subsequent level negative (3) Shortness of breath: Code(s): R06.02 - Shortness of breath Status: Acute Assessment and Plan: 03/17: Presume 2/2 fluid overload. Dialysis tomorrow. 03/18: resume cardiac medications continue to watch in IMU trop minimally elevated Echo with EF 35-40% grade 1 diastolic dysfunction moderate TR and small pericardial effusion Ultrasound abdomen with cholelithiasis wall thickening off nondilated the gallbladder negative evening cardiogenic interstitial edema over acute cholecystitis. Moderate amount of ascites Plan for paracentesis (4) Anemia: Code(s): D64.9 - Anemia, unspecified Status: Acute Assessment and Plan: 03/17: Presume chronic. Normocytic. (5) Elevated brain natriuretic peptide (BNP) level: Code(s): R79.89 - Other specified abnormal findings of blood chemistry Status: Acute Assessment and Plan: 03/17: Fluid overload 2/2 ESRD missed dialysis. Nephrology consulted. 03/18: pt seen in dialysis today complains of mild L sided chest pain Plan Ascites ultrasound-guided paracentesis ordered DVT prophylaxis heparin subQ Type 2 diabetes on insulin Victoza at home Subjective Date/time seen: 03/19/23 16:27 Interval history: 52 year old male with PMH of ESRD on MWF HD and CAD who presents with two days of chest pain.? He states the pain is in the left chest and is without timing factors.? Pedro Luis notes that the chest pain was able to be reproduced with palpation yesterday but is not reproducible today. He states there is shortness of breath that is intermittent, but perhaps worse at night or when lying down.? He notes having had a recent MD, a few months ago. Pt is non compliant to medications pt had PCI on January 16 2023. Pt admitted with chest pain seen cardiology and nephrology today. Pt to have dialysis and resume his cardiology medications. Review of Systems Review of Systems: All systems reviewed & are unremarkable except as noted in HPI and below Exam Narrative: GENERAL APPEARANCE: Appears to be in no acute distress. ENT: Hearing grossly intact, no nasal discharge NECK: Neck supple, trachea midline. CARDIAC: Normal S1/S2. Rhythm is regular. No murmurs, rubs, or gallops. No cyanosis or pallor. Extremities are warm and well perfused. LUNGS: Clear to auscultation without rales, rhonchi. Diminished bases bilaterally. Respirations even and unlabored. ABDOMEN: BS positive x 4 quadrants. Soft, nondistended, nontender. No guarding or rebound. MSK: No joint tenderness/swelling, fair strength in all extremities. PERIPHERAL VASCULAR: Peripheral pulses palpable. Normal perfusion, cap refill <2 seconds. +3 BLLE edema. NEURO: Follows commands. No focal deficits. Objective Data Vital Signs Vital Signs: Vital Signs - 24 hr 03/18/23 18:00 03/18/23 19:58 03/18/23 21:09 Temperature 98.6 F Pulse Rate 75 71 71 Respiratory Rate 16 Blood Pressure 96/57 L Pulse Oximetry 98 Oxygen Delivery Oxygen Flow Rate 03/18/23 20:00 03/18/23 20:00 03/18/23 22:00 Temperature Pulse Rate 71 72 Respiratory Rate Blood Pressure Pulse Oximetry Oxygen Delivery Room Air Oxy
[2023-03-19 16:50] LABS: Glucose Point of Care 194 mg/dl (65-105)
[2023-03-19] MEDS: INSULIN GLARGINE (*BKC) 100 UNITS/ML 16 UNITS SUB-Q (18:12)
[2023-03-19 23:41] LABS: Glucose Point of Care 211 mg/dl (65-105)
[2023-03-20] VITALS (28 sets, daily range): BP systolic 92–122; BP diastolic 44–72; PULSE 61–72; RESP 16–20; TEMP 36–37.3; O2SAT 95–100
[2023-03-20 05:21] LABS: Basophils Percent Auto 0.3 % (0.2-1.2); Eosinophils Percent Auto 0.4 % (0-4.4); Hematocrit 28.4 % (42.0-52.0); Hemoglobin 8.5 g/dL (14.0-18.0); Immature Granulocyte Absolute 0.03 K/mm3 (0.00-0.031); Immature Granulocyte Percent A 0.4 % (0-0.5); Lymphocytes Absolute Auto 1.19 K/mm3 (0.9-3.2); Lymphocytes Percent Auto 17.6 % (18.3-44.2); Mean Corpuscular HGB Conc 29.9 g/dl (32-36); Mean Corpuscular Volume 100.4 fl (80-100); Mean Platelet Volume 10.5 fl (7.4-10.4); Monocytes Absolute Auto 0.6 K/mm3 (0.1-0.6); Monocytes Percent Auto 8.9 % (2.6-8.5); Neutrophils Absolute Auto 4.9 K/mm3 (1.3-6.7); Neutrophils Percent Auto 72.4 % (45.5-73.1); Platelet Count Result 222 k/mm3 (150-375); Red Blood Count 2.83 M/mm3 (4.6-6.20); Red Cell Distribution Width 17.7 % (11.5-14.5); White Blood Count 6.8 K/mm3 (4.5-10.0)
[2023-03-20 05:39] LABS: Alanine Aminotransferase 10 U/L (6-50); Albumin Level 3.6 g/dL (3.5-5.1); Alkaline Phosphatase 183 U/L (38-126); Anion Gap 15 mmol/L (8-16); Aspartate Amino Transferase 21 U/L (17-59); Bilirubin,Total 0.9 mg/dL (0.2-1.3); Blood Urea Nitrogen 53 mg/dL (9-20); Calcium 8.6 mg/dL (8.4-10.2); Carbon Dioxide 24 mmol/L (22-30); Chloride 98 mmol/L (98-107); Estimated CRCL calculation 9 ml/min; Estimated Glomerular Filt Rate 7; Glucose 200 mg/dL (65-110); Phosphorus 6.8 mg/dL (2.5-4.5); Potassium 4.9 mmol/L (3.4-5.0); Sodium 137 mmol/L (137-145)
[2023-03-20 06:25] LABS: Acanthocytes 1+ (NORMAL); Anisocytosis 2+ (NORMAL); Platelet Estimate Adequate (Adequate); Poikilocytosis 1+ (NORMAL); Schistocytes None Seen (NORMAL)
[2023-03-20 06:26] LABS: Ovalocytes 1+ (NORMAL)
[2023-03-20 08:19] LABS: Glucose Point of Care 156 mg/dl (65-105)
[2023-03-20] MEDS: ATORVASTATIN 40 MG TABLET 80 MG PO (08:26)
[2023-03-20] MEDS: SEVELAMER CARBONATE 800 MG TABLET PO ×2 (08:27→11:55)
[2023-03-20] MEDS: ASPIRIN 81 MG CHEWABLE TABLET PO (08:27)
[2023-03-20] MEDS: TICAGRELOR 90 MG TABLET PO (08:27)
[2023-03-20] MEDS: FOLIC ACID 0.4 MG TABLET 0.8 MG PO (08:27)
[2023-03-20] MEDS: VITAMIN B COMPLEX/VIT C CAPSULE 1 EACH PO (08:27)
--- NOTE | 2023-03-20 09:22 | PC.NURSE ---
Pt to US via stretcher for paracentesis
--- NOTE | 2023-03-20 10:05 | PC.NURSE ---
Pt returned to room via stretcher. No issues noted
[2023-03-20] MEDS: prednisoLONE ACETATE 1% OPHTH 5 ML 1 DROP RIGHT EYE (10:07)
--- NOTE | 2023-03-20 10:40 | PC.NURSE ---
Addendum entered by Bing Galvin RN 03/20/23 17:42: Notified Trinity Biggs NP of pt's BP of 102/60. Pt didn't receive his Coreg this AM d/t being NPO and having soft BP. Pt to have dialysis this afternoon. New order to hold Coreg this AM and re-evaluate this evening Original Note: Spoke with Trinity Biggs NP regarding pt's plavix. Per radiologist Hold plavix until this evening. Clarified with GONZALEZ Petersen. New order to just hold Plavix for today and resume tomorrow.
[2023-03-20] MEDS: ACETAMINOPHEN 325 MG TABLET 650 MG PO (11:52)
[2023-03-20 11:56] LABS: Glucose Point of Care 159 mg/dl (65-105)
--- NOTE | 2023-03-20 12:15 | PC.NURSE ---
RN notified Trinity Biggs NP of pt's BP running low since having paracentesis this AM. Pt dizzy while sitting in the chair with BP or 83/48, recheck 84/46. RN assisted pt back to bed. Recheck of BP 15 minutes later was 92/52. New order for 500ml NS bolus now. funeral service practitioner/embalmer updated with change in pt condition. funeral service practitioner/embalmer will update Dr. Forrest with change in pt condition as well and will receive orders from
[2023-03-20] MEDS: SODIUM CHLORIDE 0.9% IV 500 ML IV CONT (12:23)
--- NOTE | 2023-03-20 13:35 | PC.NURSE ---
Pt to dialysis via bed
[2023-03-20] MEDS: ALBUMIN HUMAN 25% 12.5 GM/50ML 50 ML IVPB (13:51)
--- NOTE | 2023-03-20 14:15 | P.PNNP_ITS ---
Progress Note: A&P Assessment and Plan (1) End stage renal disease: Code(s): N18.6 - End stage renal disease Status: Chronic Assessment and Plan: * HD today * continue M/W/F dialysis schedule while hospitalized * follow electrolytes, volume status, and clearance * goes to [facility] under the care of Dr. Smith (2) Chest pain: Code(s): R07.9 - Chest pain, unspecified Status: Acute Assessment and Plan: * known history of CAD * trend troponins * Cardiology following (3) Shortness of breath: Code(s): R06.02 - Shortness of breath Status: Acute Assessment and Plan: * due to a component of fluid overload * complicated by missed dialysis treatment last week * cannot discount a cardiac component * follow respiratory status (4) Ascites: Code(s): R18.8 - Other ascites Status: Acute Assessment and Plan: * noted by recent imaging * s/p therapeutic paracentesis * appears related to cardiac issues (5) Anemia: Code(s): D64.9 - Anemia, unspecified Status: Chronic Assessment and Plan: * due to ESRD * Epogen wih HD * follow H/H Will continue to follow Subjective Date/time seen: 03/20/23 14:15 Interval history: Follow-up for end stage renal disease on hemodialysis. Tolerating hemodialysis treatment at the time of my visit (seen on HD at 2:05PM); s/p paracentesis earlier today with ~ 2.7L fluid removal -- tolerated this procedure today as well; no apparent distress noted currently. Exam Narrative: General: WD/WN male in NAD Heart: normal S1 and S2; no rub Lungs: clear anteriorly, decreased at bases Abdomen: soft, less distension, positive bowel sounds Extremities: no cyanosis or clubbing; trace edema Skin: warm and intact Objective Data Vital Signs Vital Signs: Vital Signs Temp Pulse Resp BP Pulse Ox O2 Del Method O2 Flow Rate 03/20/23 14:15 65 110/61 03/20/23 14:00 65 120/72 03/20/23 13:45 68 117/66 03/20/23 14:45 65 107/61 03/20/23 13:41 2 03/20/23 13:30 98.2 F 66 16 95/49 L 03/20/23 13:41 66 103/51 L 03/20/23 10:00 70 03/20/23 08:00 69 03/20/23 08:00 100 Nasal Cannula 1 03/20/23 08:01 96.8 F L 68 18 102/60 100 03/20/23 04:00 61 18 95 Nasal Cannula 2 03/20/23 06:00 61 03/20/23 04:00 66 03/20/23 02:00 66 03/20/23 00:00 65 03/19/23 22:00 65 03/19/23 20:00 71 03/20/23 05:12 97.8 F 72 18 110/58 L 95 03/20/23 00:00 67 18 99 Nasal Cannula 2 03/19/23 23:31 97.6 F 67 18 97/55 L 99 03/19/23 20:00 63 18 98 Nasal Cannula 2 03/19/23 19:48 97.3 F L 63 18 94/61 L 98 03/19/23 18:00 65 Intake/Output Intake/Output: Intake & Output 03/17/23 03/18/23 03/19/23 03/20/23 23:59 23:59 23:59 23:59 Intake Total 920 360 720 940 Output Total 1999 2 3110 [facility] [phone] Meds/Results Medications: Active Medications Generic Name Dose Route S
--- NOTE | 2023-03-20 14:15 | PM.PNNEP ---
Progress Note: A&P Assessment and Plan (1) End stage renal disease: Code(s): N18.6 - End stage renal disease Status: Chronic Assessment and Plan: HD today continue M/W/F dialysis schedule while hospitalized follow electrolytes, volume status, and clearance goes to [facility] under the care of Dr. Smith (2) Chest pain: Code(s): R07.9 - Chest pain, unspecified Status: Acute Assessment and Plan: known history of CAD trend troponins Cardiology following (3) Shortness of breath: Code(s): R06.02 - Shortness of breath Status: Acute Assessment and Plan: due to a component of fluid overload complicated by missed dialysis treatment last week cannot discount a cardiac component follow respiratory status (4) Ascites: Code(s): R18.8 - Other ascites Status: Acute Assessment and Plan: noted by recent imaging s/p therapeutic paracentesis appears related to cardiac issues (5) Anemia: Code(s): D64.9 - Anemia, unspecified Status: Chronic Assessment and Plan: due to ESRD Epogen wih HD follow H/H Will continue to follow Subjective Date/time seen: 03/20/23 14:15 Interval history: Follow-up for end stage renal disease on hemodialysis. Tolerating hemodialysis treatment at the time of my visit (seen on HD at 2:05PM); s/p paracentesis earlier today with ~ 2.7L fluid removal -- tolerated this procedure today as well; no apparent distress noted currently. Exam Narrative: General: WD/WN male in NAD Heart: normal S1 and S2; no rub Lungs: clear anteriorly, decreased at bases Abdomen: soft, less distension, positive bowel sounds Extremities: no cyanosis or clubbing; trace edema Skin: warm and intact Objective Data Vital Signs Vital Signs: Vital Signs Temp Pulse Resp BP Pulse Ox O2 Del Method O2 Flow Rate 03/20/23 14:15 65 110/61 03/20/23 14:00 65 120/72 03/20/23 13:45 68 117/66 03/20/23 14:45 65 107/61 03/20/23 13:41 2 03/20/23 13:30 98.2 F 66 16 95/49 L 03/20/23 13:41 66 103/51 L 03/20/23 10:00 70 03/20/23 08:00 69 03/20/23 08:00 100 Nasal Cannula 1 03/20/23 08:01 96.8 F L 68 18 102/60 100 03/20/23 04:00 61 18 95 Nasal Cannula 2 03/20/23 06:00 61 03/20/23 04:00 66 03/20/23 02:00 66 03/20/23 00:00 65 03/19/23 22:00 65 03/19/23 20:00 71 03/20/23 05:12 97.8 F 72 18 110/58 L 95 03/20/23 00:00 67 18 99 Nasal Cannula 2 03/19/23 23:31 97.6 F 67 18 97/55 L 99 03/19/23 20:00 63 18 98 Nasal Cannula 2 03/19/23 19:48 97.3 F L 63 18 94/61 L 98 03/19/23 18:00 65 Intake/Output Intake/Output: Intake & Output 03/17/23 03/18/23 03/19/23 03/20/23 23:59 23:59 23:59 23:59 Intake Total 920 360 720 940 Output Total 1999 2 2700 Balance 920 -2459 142 -1899 Meds/Results Medications: Active Medications Generic Name Dose Route Start Last Admin Trade Name Freq PRN Reason Stop Dose Admin Acetaminophen 650 mg 03/17/23 14:04 03/20/23 11:52 Acetaminophen 325 Mg Tablet PO 650 mg Q4H PRN Administration Mild Pain (1-3) or Fever Aspirin 81 mg 03/19/23 09:00 03/20/23 08:27 Aspirin 81 Mg Chewable Tablet PO 81 mg DAILY ROSIE Administration Atorvastatin Calcium 80 mg 03/19/23 09:00 03/20/23 08:26 Atorvastatin 40 Mg Tablet PO 80 mg DAILY ROSIE Administration Carvedilol 3.125 mg 03/18/23 21:00 03/20/23 11:43 Carvedilol 3.125 Mg Tablet PO Not Given Q12HR ROSIE Clopidogrel Bisulfate 75 mg 03/19/23 09:00 03/20/23 10:41 Clopidogrel Bisulfate 75 Mg Tablet PO Not Given DAILY ROSIE Dextrose 12.5 gm 03/18/23 16:51 Dextrose 50% 25 Gm/50 Ml Syringe IV PUSH PRN PRN Hypoglycemia Protocol Epoetin Kel-epbx 10,000 units 03/20/23 20:33 E
--- NOTE | 2023-03-20 15:07 | PM.DS ---
DS: Admitting Diagnosis Discharge Date 03/20/23 Admitting Diagnosis Chest pain, end-stage renal disease DS: Discharge Diagnosis Discharge Diagnosis (1) ESRD on hemodialysis: Code(s): N18.6 - End stage renal disease; Z99.2 - Dependence on renal dialysis Status: Acute Assessment and Plan: Missed Saturday dialysis. Appears volume overloaded on exam. - Nephrology consulted (2) Chest pain: Code(s): R07.9 - Chest pain, unspecified Status: Acute Assessment and Plan: Chest pain x 2 days with minimally elevated troponin. There is a recent [place] with stenting per family - [facility] - Serial enzymes/ekgs. Telemetry. ASA/ntg. Morphine for pain unrelieved by nitro. - Consult with cardiology. - Restart cardiology meds pt is non compliant - trop minimally elevated with subsequent level negative - start carvedilol 3.125 mg p.o. b.i.d. (3) Shortness of breath: Code(s): R06.02 - Shortness of breath Status: Acute Assessment and Plan: 03/17: Presume 2/2 fluid overload. Dialysis tomorrow. 03/18: resume cardiac medications continue to watch in IMU trop minimally elevated Echo with EF 35-40% grade 1 diastolic dysfunction moderate TR and small pericardial effusion Ultrasound abdomen with cholelithiasis wall thickening off nondilated the gallbladder negative evening cardiogenic interstitial edema over acute cholecystitis. Moderate amount of ascites paracentesis yielding 2700 mL of fluid. Fluid analysis. Will follow. patient able to be weaned to room air after paracentesis. (4) Anemia: Code(s): D64.9 - Anemia, unspecified Status: Acute Assessment and Plan: 03/17: Presume chronic. Normocytic. (5) Elevated brain natriuretic peptide (BNP) level: Code(s): R79.89 - Other specified abnormal findings of blood chemistry Status: Acute Assessment and Plan: 03/17: Fluid overload 2/2 ESRD missed dialysis. Nephrology consulted. 03/18: pt seen in dialysis today complains of mild L sided chest pain Plan Ascites ultrasound-guided paracentesis ordered DVT prophylaxis heparin subQ Type 2 diabetes on insulin Victoza at home DS: Summary Hospital Course Hospital Course: This is a 52-year-old male with a past medical history of end-stage renal disease, high risk stenosis/PCI performed on 12/2022 at [place], hypertension, CHF and anemia the presented to the ED on 03/17/2023 due to chief complaint of chest pain for over 2 days. He is evaluated in the ED and found to have a minimally elevated troponin. Patient had missed his dialysis appointment due to not feeling well several days before. He was admitted for evaluation of chest pain. His troponins were trended but remained flat. Cardiology recommended starting on carvedilol 3.125 p.o. b.i.d. cardiology also recommending following up with any other changes to medications with patient's [facility] Cardiology doctor. Nephrology was consulted in order to get patient back on his dialysis regimen. Patient experienced worsening shortness of breath and was found that he had moderate amount of ascites in his abdomen. He underwent paracentesis yielding 2700 mL of fluid. This is not the 1st time patient has needed this done. Abdominal ultrasound revealing that his ascites is most likely cardiogenic in nature. 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 His labs and vital signs are stable and he is medically clear for discharge at this time. Continue with regularly scheduled dialysis appointments. Time Spent with Patient Time attestation: Total time spent providing and/or coordinating discharge services: Exam Narrative: GENERAL: Comfortable, no acute distress HENMT: moist mucous membranes EYES: EOM intact b/l NECK: no lymphadenopathy RESPIRATORY: clear to auscultation CARDIO: RRR GI: soft, nontender, bowel sounds present SKIN: no rashes EXTREMITIES:
[2023-03-20] MEDS: EPOETIN ALFA-EPBX 10,000 UNITS/ML VIAL 10000 UNITS IV PUSH (16:49)
--- NOTE | 2023-03-20 17:55 | PC.NURSE ---
Pt returned from dialysis via bed. No issues noted
[2023-03-20 19:13] LABS: Glucose Point of Care 117 mg/dl (65-105)
== END 2023-03-20 19:10 | disposition home or self-care (01) | DRG 425 ==
LOC: ANHED 12:48 → ANHIMU 15:00
PROVIDERS: Internal Medicine; Internal Medicine Nephrology; Nurse Practitioner Family; Admitting Provider General Practice; Emergency Provider Student in an Organized Health Care Education/Training Program; Visit Provider Internal Medicine Critical Care Medicine
DX: E87.79 Other fluid overload (principal); N18.6 End stage renal disease; I13.2 Hypertensive heart and chronic kidney disease with heart failure and with stage 5 chronic kidney disease, or end stage renal disease; Z91.158 Patient's noncompliance with renal dialysis for other reason; Z99.2 Dependence on renal dialysis; Z20.822 Contact with and (suspected) exposure to COVID-19; E11.22 Type 2 diabetes mellitus with diabetic chronic kidney disease; R18.8 Other ascites; I50.22 Chronic systolic (congestive) heart failure; D64.9 Anemia, unspecified; I25.5 Ischemic cardiomyopathy; I25.2 Old myocardial infarction
CPT/HCPCS: 36415; 49083; 71045; 71046; 71250; 74176; 76705; 80053; 82550; 82607; 82728; 82948; 83540; 83550; 83605; 83690; 83735; 83880; 84100; 84484; 85025; 85027; 85610; 85730; 86706; 87340; 87636; 93005; 93306; 99285; A9270; G0257; J1644; J1815; J7030; J7040; P9047; Q5105